=== PATIENT | male | born 1980 | race Caucasian/White ===

== ENCOUNTER 2021-03-08 06:03 | Day surgery (SDC) | payer OTHER ==
[~2021-03-08] VITALS: Ht 184 cm; Wt 105.6 kg
[~2021-03-08 06:03] MED LIST: EMERGEN C; HYDACE5 PO; KETO10 PO; NAPR550 PO; OXYACE5T PO; PROM25 PO; RXHYDACE PO; RXNAPNA550 PO; TAMS.4ER PO
--- NOTE | 2021-03-08 06:41 | NUR ---
Ambulatory in Day Surgery History, Chart, Medications and Allergies reviewed before start of procedure.Patient confirms NPO status and agrees with scheduled surgery. PT WITH MASS ON FOREHEAD. WILL DISCUSS CLIP PREP AND CHL WITH DR. ROJAS. DID NOT TAKE SHOWERS AT HOME
--- NOTE | 2021-03-08 08:31 | NUR ---
Dressing to procedure site clean, dry, intact with no visible drainage, swelling, erythema or bruising noted.
--- NOTE | 2021-03-08 08:33 | NUR ---
PT TOLERATING PO FLUIDS
--- NOTE | 2021-03-08 08:58 | NUR ---
Dressing to procedure site clean, dry, intact with no visible drainage, swelling, erythema or bruising noted. Discharge instructions reviewed with patient. Patient verbalizes understanding. Copy given to patient to take home. Discharged via wheelchair to private car for ride home.
== END 2021-03-08 09:03 | disposition home or self-care (01) ==
LOC: ORSCMMR 06:03 → ORD 07:30 → ORSCMMR 09:03
PROVIDERS: Surgery
PROC: 0JB10ZZ Excision of Face Subcutaneous Tissue and Fascia, Open Approach (ICD-10-PCS; principal; 2021-03-08 07:30)
DX: D17.0 Benign lipomatous neoplasm of skin and subcutaneous tissue of head, face and neck (principal); I10 Essential (primary) hypertension; Z87.891 Personal history of nicotine dependence
CPT/HCPCS: 88304; A9270; J0690; J1100; J2250; J2405; J2704; J3010; J7120

== ENCOUNTER 2021-06-22 22:39 | Observation (INO) | payer OTHER ==
[~2021-06-22] VITALS: Ht 185.4 cm; Wt 106.6 kg
[2021-06-22] MEDS ORDERED: HYDROCODONE-AC1 EA14 PO (23:12)
[2021-06-22] MEDS ORDERED: TAMS.4ER PO (23:13)
[2021-06-22] MEDS ORDERED: OXYC5 (23:13)
[2021-06-22] MEDS ORDERED: 1/2 NS 250ml250 ML (23:13)
[2021-06-22 23:20] LABS: Source, Urine Clean Catch
[2021-06-22 23:24] LABS: Appearance, Urine Clear (Clear); Bilirubin, Urine Neg (Neg); Blood, Urine 5+ (Neg); Color, Urine Yellow (P-Yellow); Glucose Qualitative, Urine Neg (Neg); Ketones, Urine Neg (Neg); Leukocyte Esterase, Urine 1+ (Neg); Nitrite, Urine Neg (Neg); Protein, Urine 3+ (Neg); Urobilinogen, Urine NORM (Normal)
[2021-06-22 23:30] LABS: Bacteria Mod /hpf; Mucus Light (0-Heavy); Red Blood Cells, Urine 25-50 /hpf (0-2); Squamous Epithelial Cells Not Seen /hpf (Few); White Blood Cells, Urine 50-100 /hpf (0-5)
[2021-06-22 23:56] LABS: BASOPHILS ABSOLUTE AUTO 0.06 K/mm3 (0.00-0.23); BASOPHILS PERCENT AUTO 1 % (0-2); EOSINOPHILS ABSOLUTE AUTO 0.11 K/mm3 (0.00-0.68); EOSINOPHILS PERCENT AUTO 1 % (0-6); IMMATURE GRAN ABSOLUTE AUTO 0.06 K/mm3 (0.00-0.10); IMMATURE GRAN PERCENT AUTO 1 % (0-1); LYMPHOCYTES ABSOLUTE AUTO 1.49 K/mm3 (0.84-5.20); LYMPHOCYTES PERCENT AUTO 12 % (21-46); MONOCYTES ABSOLUTE AUTO 0.98 K/mm3 (0.16-1.47); MONOCYTES PERCENT AUTO 8 % (4-13); Mean Corpuscular HGB 30.9 pg (26.0-34.0); Mean Corpuscular HGB Conc 34.8 g/dL (31.5-36.5); Mean Corpuscular Volume 89 fL (80-100); Mean Platelet Volume 8.4 fL (9.1-12.4); NEUTROPHILS ABSOLUTE AUTO 9.97 K/mm3 (1.96-9.15); NEUTROPHILS PERCENT AUTO 79 % (41-73); Platelet Count 298 K/mm3 (150-400); RDW Coefficient Variation 11.6 % (11.7-14.2); RDW Standard Deviation 37.6 fL (35.1-46.3); Red Blood Cell Count 5.17 M/mm3 (4.30-5.90); White Blood Cell Count 12.67 K/mm3 (4.00-11.30)
[2021-06-23 00:14] LABS: Anion Gap 6 mmol/L (6-16); Blood Urea Nitrogen 21 mg/dL (8-24); Bun/Creatinine Ratio 19.1 (12.0-20.0); CO2, Blood 27 mmol/L (21-32); Calcium, Blood 9.5 mg/dL (8.5-10.1); Chloride, Blood 103 mmol/L (98-108); Glomerular Filtration Rate >60 (60-); Glucose, Blood 179 mg/dL (70-99); Potassium, Blood 4.5 mmol/L (3.5-5.5); Sodium, Blood 136 mmol/L (136-145)
--- NOTE | 2021-06-23 06:22 | NUR ---
PT ARRIVED TO UNIT AT APPROX 0445. ADMITTED INTO ROOM. VSS. PAIN CONTROLLED-SEE EMAR. FLUIDS RUNNING.
--- NOTE | 2021-06-23 17:13 | NUR ---
PATIENT ALERT AND ORIENTED X 4. ABLE TO MAKE NEEDS AND WANTS KNOWN. NO SIGNS OR SYMPTOMS ACUTE DISTRESS NOTED. CALL LIGHT AND WATER IN [facility]. SITTING UP IN BED LOOKING AT TV. VISITED TODAY. MEDICATED FROM PAIN ONE TIME WITH TORDAL PER ORDERS. COMPLAINS OF BURNING UPON URINATION. CONTINENT OF BLADDER AND BOWEL. UP AD KAILEE IN ROOM. SPOKE WITH DR FONTANEZ ABOUT PLANS FOR PATIENT. PLAN IS TO HAVE CT/KUB DONE IN THE AM, IF STONE STILL PRESENT PATIENT WILL BE TRANSFERED TO ANOTHER FACILITY. MAKE PATIENT AWARE OF THIS. WILL CONTINUE TO MONITOR.
[2021-06-24 04:00] LABS: BASOPHILS ABSOLUTE AUTO 0.04 K/mm3 (0.00-0.23); BASOPHILS PERCENT AUTO 1 % (0-2); EOSINOPHILS ABSOLUTE AUTO 0.32 K/mm3 (0.00-0.68); EOSINOPHILS PERCENT AUTO 5 % (0-6); Hematocrit 40.6 % (37.0-53.0); Hemoglobin 13.6 g/dL (13.5-17.5); IMMATURE GRAN ABSOLUTE AUTO 0.02 K/mm3 (0.00-0.10); IMMATURE GRAN PERCENT AUTO 0 % (0-1); LYMPHOCYTES ABSOLUTE AUTO 2.13 K/mm3 (0.84-5.20); LYMPHOCYTES PERCENT AUTO 30 % (21-46); MONOCYTES ABSOLUTE AUTO 0.73 K/mm3 (0.16-1.47); MONOCYTES PERCENT AUTO 10 % (4-13); Mean Corpuscular HGB 30.4 pg (26.0-34.0); Mean Corpuscular HGB Conc 33.5 g/dL (31.5-36.5); Mean Corpuscular Volume 91 fL (80-100); Mean Platelet Volume 8.6 fL (9.1-12.4); NEUTROPHILS ABSOLUTE AUTO 3.93 K/mm3 (1.96-9.15); NEUTROPHILS PERCENT AUTO 55 % (41-73); Platelet Count 248 K/mm3 (150-400); RDW Coefficient Variation 11.8 % (11.7-14.2); RDW Standard Deviation 39.4 fL (35.1-46.3); Red Blood Cell Count 4.47 M/mm3 (4.30-5.90); White Blood Cell Count 7.17 K/mm3 (4.00-11.30)
[2021-06-24 04:18] LABS: Alanine Aminotransfer (ALT/SGP 43 U/L (12-78); Albumin, Blood 2.9 g/dL (3.4-5.0); Albumin/Globulin Ratio 0.8 (0.8-1.8); Alk Phos 53 U/L (50-136); Anion Gap 3 mmol/L (6-16); Aspartate Aminotrans (AST/SGOT 18 U/L (12-37); Bilirubin, Total 0.2 mg/dL (0.1-1.0); Blood Urea Nitrogen 19 mg/dL (8-24); Bun/Creatinine Ratio 20.5 (12.0-20.0); CO2, Blood 28 mmol/L (21-32); Calcium, Blood 8.5 mg/dL (8.5-10.1); Chloride, Blood 109 mmol/L (98-108); Creatinine, Blood 0.93 mg/dL (0.60-1.20); Globulin, Blood 3.6 g/dL (2.2-4.0); Glomerular Filtration Rate >60 (60-); Glucose, Blood 127 mg/dL (70-99); Potassium, Blood 4.2 mmol/L (3.5-5.5); Sodium, Blood 140 mmol/L (136-145); Total Protein, Blood 6.5 g/dL (6.4-8.2)
[2021-06-24 15:29] LABS: SARS-Cov-2 (COVID-19) PCR, MMC NEGATIVE (NEGATIVE)
--- NOTE | 2021-06-24 18:36 | NUR ---
PATIENT CURRENTLY LYING IN BED WITH NO SIGNS OR SYMPTOMS ACUTE DISTRESS NOTED. NO COMPLAINTS OF PAIN AT THIS TIME. WAS MEDICATED WITH TYLENOL FOR HEADACHE TODAY. CALL LIGHT AND WATER IN [place] [place], ENCOURAGED FLUIDS. PATIENT TO BE TRANSFERED TO [facility] FOR UROLOGY CONSULT WHEN BED BECOMES AVAILABLE. PATIENT IS AWARE. AWAITING BED. COVID TEST WAS NEGATIVE. PATIENT IS AAOX4. VISITED TODAY. GOOD APPETITE. NO PROBLEMS URINATING, DOES COMPLAIN OF SOME BURNING UPON URINATION. WILL CONTINUE TO MONITOR.
--- NOTE | 2021-06-24 20:42 | NUR ---
REPORT CALLED TO ISIDRO URIOSTEGUI AT [facility]/ PT IS TO GO TO ROOM 8370/
--- NOTE | 2021-06-24 21:15 | NUR ---
ALL BELONGINGS GATHERED AND TAKEN WITH PT VIA EMS TO [facility] ROOM 7230 AFTER CALLING REPORT TO ISIDRO URIOSTEGUI.
== END 2021-06-24 21:10 | disposition short-term general hospital (02) ==
LOC: ER 22:39 → SURS 22:40 → MEDS 22:40 → SURS 22:41 → MEDS 06-23 03:34 → ER 06-23 03:34 → SURS 06-23 04:50 → MEDS 06-23 04:50 → SURS 06-24 21:10
PROVIDERS: Internal Medicine; Student in an Organized Health Care Education/Training Program; ADMIT Internal Medicine
DX: N13.6 Pyonephrosis (principal); Z88.0 Allergy status to penicillin; Z91.013 Allergy to seafood; Z79.899 Other long term (current) drug therapy; Z20.822 Contact with and (suspected) exposure to COVID-19
CPT/HCPCS: 36415; 74176; 74178; 80048; 80053; 81001; 85025; 87086; 96361; 96365; 96366; 96374; 96375; 96376; 99284-25; A9270; G0378; J0696; J1170; J1885; J2270; J7030; Q9967; U0004